=== PATIENT | male | born 1960 | race Caucasian/White ===

== ENCOUNTER → 2017-06-18 | Outpatient (CLI) | payer BC ==
--- NOTE | 2017-06-18 14:26 | RAD ---
DATE: 06/18/2017 EXAM: DIGITAL DIAGNOSTIC BILATERAL HISTORY: Rash and swelling of the left breast. COMPARISON: None available. This study was interpreted with the benefit of Computerized Aided Detection (CAD). The breast parenchyma is primarily fatty replaced. Breast parenchyma level density A. FINDINGS: Bilateral CC and MLO views were performed. Right breast: No suspicious microcalcifications, masses or areas of architectural distortion. Left breast: No suspicious microcalcifications, masses or areas of architectural distortion. Findings are stable from the prior mammogram. IMPRESSION: Negative bilateral mammogram. Recommend clinical management of patient's rash and swelling. BI-RADS CATEGORY: 1 NEGATIVE RECOMMENDED FOLLOW-UP: CLIN FOLLOW UP IMAGING CLINICALLY INDICATED PQRS compliance statement: Mammography is a sensitive method for finding small breast cancers, but it does not detect them all and is not a substitute for careful clinical examination. A negative mammogram does not negate a clinically suspicious finding and should not result in delay in biopsying a clinically suspicious abnormality. "Our facility is accredited by the [employer] Mammography Program."
== END | disposition home or self-care (01) ==
LOC: MAMMO 12:56
PROVIDERS: ATTEND Family Medicine
DX: N63 Unspecified lump in breast (principal); N64.51 Induration of breast; L98.8 Other specified disorders of the skin and subcutaneous tissue
CPT/HCPCS: G0204; 77066